=== PATIENT | female | born 1980 | race Caucasian/White ===

== ENCOUNTER 2017-12-16 12:29 | Emergency (ER) | payer BC ==
--- NOTE | 2017-12-16 13:28 | ED Physician Documentation ---
PD HPI BACK PAIN - Stated complaint Stated Complaint: LOW BACK PX.NAUSEA - Chief complaint Chief Complaint: Back Pain - History obtained from History obtained from: Patient - History of Present Illness Timing - onset: Yesterday Timing - details: Abrupt onset, Still present Location: Mid (in flank/kidney area and lateral/anterior to that as well.), Left Quality: Pain, Aching. No: Sharp, Tearing Associated symptoms: No: Fever, Weakness, Numbness, Hematuria Improves with: No: Rest Worsened by: Movement, Twisting. No: Palpation Contributing factors: No: Lifting, Twisting, Trauma Similar symptoms before: Has not had sx before Recently seen: Not recently seen Review of Systems Constitutional: denies: Fever, Chills, Myalgias Nose: denies: Rhinorrhea / runny nose, Congestion Throat: denies: Sore throat Cardiac: denies: Chest pain / pressure, Palpitations, Pedal edema, Calf pain Respiratory: denies: Dyspnea, Cough, Wheezing GI: reports: Abdominal Pain, Nausea. denies: Vomiting, Constipation, Diarrhea, Hematemesis, Bloody / black stool : denies: Dysuria, Frequency, Discharge Skin: denies: Rash, Lesions Musculoskeletal: reports: Back pain Neurologic: denies: Generalized weakness, Focal weakness, Numbness, Near syncope Endocrine: denies: Weight loss Immunocompromised: denies: Immunocompromised PD PAST MEDICAL HISTORY - Past Medical History Past Medical History: No Cardiovascular: None Endocrine/Autoimmune: None GI: None CUTTING MACHINE TENDER: None - Past Surgical History Past Surgical History: Yes Ortho: Other /CUTTING MACHINE TENDER: Dilation and currettage - Present Medications Home Medications: Ambulatory Orders Medication Instructions Recorded Confirmed Acyclovir BID 12/16/17 HYDROcod/ACETAM 5/325 [Largo 5/325] 1 tab PO Q6H PRN #15 tablet 12/16/17 Methocarbamol [Robaxin] 500 mg PO Q6H PRN #25 tablet 12/16/17 Naproxen 375 mg PO BID #20 tablet 12/16/17 - Allergies Allergies/Adverse Reactions: Allergies Allergy/AdvReac Type Severity Reaction Status Date / Time No Known Drug Allergies Allergy Verified 12/16/17 12:58 - Social History Does the pt smoke?: No Smoking Status: Never smoker Does the pt drink ETOH?: Yes Does the pt have substance abuse?: No - Family History Family history: denies: Aortic aneursym, Aortic dissection - Immunizations Immunizations are current?: Yes PD ED PE NORMAL - Vitals Vital signs reviewed: Yes - General General: Alert and oriented X 3, Well developed/nourished, Other (appears in pain, but is alert and conversant. ) - HEENT HEENT: Pharynx benign - Neck Neck: Supple, no meningeal sign, No adenopathy - Cardiac Cardiac: RRR, No murmur - Respiratory Respiratory: Clear bilaterally - Abdomen Abdomen: Normal bowel sounds, Soft, Non distended, No organomegaly, Other ( murphy left lateral abdomen without guarding. Left CVA tender as well. No rash nor sores. ) - Female Female : Deferred - Rectal Rectal: Deferred - Back Back: No CVA TTP - Derm Derm: Normal color, Warm and dry - Extremities Extremities: No deformity, No tenderness to palpate - Neuro Neuro: Alert and oriented X 3, No motor deficit, Normal speech Results - Vitals Vitals: Oxygen O2 Source Room air - Labs Labs: Laboratory Tests 12/16/17 12/16/17 12/16/17 13:00 13:00 14:49 WBC 9.1 RBC 4.05 L Hgb 13.2 Hct 38.8 MCV 95.8 MCH 32.5 H MCHC 34.0 RDW 13.7 Plt Count 234 MPV 8.5 Neut # 5.5 Lymph # 2.6 Mckenzie # 0.8 Eos # 0.1 Baso # 0.1 Absolute Nucleated RBC 0.00 Nucleated RBC % 0.0 Sodium Potassium Chloride Carbon Dioxide Anion Gap BUN Creatinine Estimated GFR (MDRD) Glucose Calcium Total Bilirubin AST ALT Alkaline Phosphatase Total Protein Albumin Globulin Albumin/Globulin Ratio Lipase Urine Color DARK YELLOW Urine Clarity CLEAR Urine pH 5.5 Ur Specific [place] 1.025 1.025 Urine Protein NEGATIVE Urine Glucose (UA) NEGATIVE Urine Ketones TRACE Urine Occult Blood SMALL H Urine Nitrite NEGATIVE Urine Bilirubin NEGATIVE Urine Urobilinogen 0.2 (NORMAL) Ur Leukocyte Esterase NEGATIVE Urine RBC 0-5 Urine WBC 0-3 Ur Squamous Epith Cells RARE Squamous Urine Bacteria Rare Ur Microscopic Review INDICATED Urine Culture Comments NOT INDICATED Urine HCG, Qual NEGATIVE 12/16/17 14:49 WBC RBC Hgb Hct MCV MCH MCHC RDW Plt Count MPV Neut # Lymph # Mckenzie # Eos # Baso # Absolute Nucleated RBC Nucleated RBC % Sodium 139 Potassium 4.1 Chloride 103 Carbon Dioxide 30 Anion Gap 6.0 BUN 13 Creatinine 0.8 Estimated GFR (MDRD) 80 L Glucose 101 H Calcium 8.7 Total Bilirubin 1.4 H AST 27 ALT 22 Alkaline Phosphatase 71 Total Protein 6.5 L Albumin 3.9 Globulin 2.6 Albumin/Globulin Ratio 1.5 Lipase 29 Urine Color Urine Clarity Urine pH Ur Specific [place] Urine Protein Urine Glucose (UA) Urine Ketones Urine Occult Blood Urine Nitrite Urine Bilirubin Urine Urobilinogen Ur Leukocyte Esterase Urine RBC Urine WBC Ur Squamous Epith Cells Urine Bacteria Ur Microscopic Review Urine Culture Comments Urine HCG, Qual - Rads (name of study) abd CT Radiology: Prelim report reviewed (no acute process. Normal appendix. Normal kidneys. ), EMP read contemporaneously PD MEDICAL DECISION MAKING - ED course Complexity details: reviewed results (no obvious cause for the pain and nausea. ), considered differential (consider kidney stone, Pyelo, diverticulitis, ischemic bowel, viral illness. not in likely position for ovarian cause. wrong side for appendix and gallbladder. No rash at this time yet. ), d/w patient Departure - Departure Disposition: 01 Home, Self Care Clinical Impression: Acute left flank pain Condition: Stable Record reviewed to determine appropriate education?: Yes Instructions: ED Flank Pain Uncertain Cause Prescriptions: HYDROcod/ACETAM 5/325 [[place]argo 5/325] 1 tab PO Q6H PRN #15 tablet PRN Reason: Pain Methocarbamol [Robaxin] 500 mg PO Q6H PRN #25 tablet PRN Reason: Spasms Naproxen 375 mg PO BID #20 tablet Comments: Your tests here today have been normal so there is no obvious severe /serious cause for the pain. It may be musculoskeletal given some worsening with movement and deep breathing. See how you do with some anti-inflammatories such as naproxen twice daily for 7-10 days. Add Robaxin muscle relaxant for stiffness and spasm and Tylenol or hydrocodone if needed for pain. Recheck if not improved over the next several days. Return if other symptoms develop. Discharge Date/Time: 12/16/17 16:19
[2017-12-16 13:44] LABS: GLUCOSE, URINE (UA) NEGATIVE (NEGATIVE); KETONES,URINE (UA) TRACE mg/dL (NEGATIVE); LEUKOCYTE ESTERASE, URINE NEGATIVE (NEGATIVE); NITRITE,URINE NEGATIVE (NEGATIVE); OCCULT BLOOD,URINE SMALL (NEGATIVE); PH,URINE 5.5 PH (5.0-7.5); PROTEIN,URINE NEGATIVE (NEGATIVE); UROBILINOGEN,URINE 0.2 (NORMAL) E.U./dL (NORMAL)
[2017-12-16 13:47] LABS: BILIRUBIN,URINE NEGATIVE (NEGATIVE); CLARITY,URINE CLEAR (CLEAR); ICTOTEST,URINE NEGATIVE
[2017-12-16] MEDS ORDERED: METHOCARBAMOL 500 MG TABLET PO STA (13:49)
[2017-12-16] MEDS ORDERED: ACETAMINOPHEN 325 MG TABLET PO STA (13:49)
[2017-12-16] MEDS ORDERED: KETOROLAC 60 MG/2 ML VIAL IM STA (13:49)
[2017-12-16 14:12] LABS: RBC,URINE 0-5 /HPF (0-5); SQUAMOUS EPITHELIAL CELL,UR RARE Squamous (<= Few)
[2017-12-16 14:13] LABS: BACTERIA,URINE Rare /HPF (None Seen)
[2017-12-16 14:50] LABS: HCG UR QUAL NEGATIVE
[2017-12-16 15:00] LABS: BASOPHILS # (AUTO) 0.1 10^3/uL (0.0-0.1); BASOPHILS % (AUTO) 0.7 %; EOSINOPHILS # (AUTO) 0.1 10^3/uL (0.0-0.7); EOSINOPHILS % (AUTO) 1.2 %; HGB - HEMOGLOBIN 13.2 g/dL (12.0-16.0); LYMPHOCYTES # (AUTO) 2.6 10^3/uL (1.5-3.5); LYMPHOCYTES % (AUTO) 28.7 %; MEAN CORPUSCULAR HEMOGLOBIN 32.5 pg (27.0-31.0); MEAN CORPUSCULAR VOLUME 95.8 fL (81.0-99.0); MEAN PLATELET VOLUME 8.5 fL (7.9-10.8); MONOCYTES # (AUTO) 0.8 10^3/uL (0.0-1.0); MONOCYTES % (AUTO) 8.4 %; NEUTROPHILS # (AUTO) 5.5 10^3/uL (1.5-6.6); PLT - PLATELET COUNT 234 10^3/uL (130-450); RED BLOOD COUNT 4.05 10^6/uL (4.20-5.40); RED CELL DISTRIBUTION WIDTH 13.7 % (12.0-15.0); WHITE BLOOD COUNT 9.1 x10^3/uL (4.8-10.8)
[2017-12-16 15:11] LABS: ALBUMIN 3.9 g/dL (3.2-5.5); ALBUMIN/GLOBULIN RATIO 1.5 (1.0-2.2); BILIRUBIN,TOTAL 1.4 mg/dL (0.2-1.0); CALCIUM 8.7 mg/dL (8.5-10.3); CREATININE 0.8 mg/dL (0.4-1.0); TOTAL PROTEIN 6.5 g/dL (6.7-8.2)
[2017-12-16 15:36] VITALS: BP 106/64
--- NOTE | 2017-12-16 15:44 | CT Preliminary Report ---
Exam: CT ABDOMEN/PELVIS W/O IMPRESSION: No urinary tract stones or obstruction. [facility] SITE ID: [id number]
--- NOTE | 2017-12-16 15:44 | CT Report ---
EXAM: CT ABDOMEN AND PELVIS (CT KUB) EXAM DATE: 12/16/2017 03:14 PM. CLINICAL HISTORY: Left flank pain onset abrupt yesterday. COMPARISONS: None. TECHNIQUE: Routine axial helical CT imaging was performed through the abdomen and pelvis without IV c ontrast. Reconstructions: Coronal and sagittal. In accordance with CT protocol optimization, one or more of the following dose reduction techniques w ere utilized for this exam: automated exposure control, adjustment of mA and/or KV based on patient s ize, or use of iterative reconstructive technique. FINDINGS: Lung Bases: Unremarkable. Right Kidney/Ureter: No stones, hydronephrosis, or hydroureter. No perinephric fat stranding. Left Kidney/Ureter: No stones, hydronephrosis, or hydroureter. No perinephric fat stranding. Other Solid Organs: Noncontrast images of the solid organs are grossly unremarkable. Gallbladder/Bile Ducts: Unremarkable. Peritoneal Cavity: No free fluid, free air or sasha adenopathy. Bowel is grossly unremarkable. Modera te amount of stool. Normal appendix. Pelvic Organs: No bladder stones or wall thickening. Noncontrast images of the visualized pelvic orga ns are unremarkable. Vasculature: Unremarkable. Other: None. IMPRESSION: No urinary tract stones or obstruction. [facility] Referring Provider Line: [phone] SITE ID: [id number]
== END 2017-12-16 16:19 | disposition home or self-care (01) ==
LOC: ED 12:29
DX: R10.9 Unspecified abdominal pain (principal)
CPT/HCPCS: 36415; 74176; 80053; 81001; 81025; 83690; 85025; 99283; 99284; A9270; 81003; 87086

== ENCOUNTER 2019-01-24 21:54 | Emergency (ER) | payer BC ==
--- NOTE | 2019-01-24 22:26 | ED Physician Documentation ---
History of Present Illness - Stated complaint Stated Complaint: HIGH BP/1 WK POST - Chief complaint Chief Complaint: General - History obtained from History obtained from: Patient, Family - History of Present Illness Timing: Today - Additonal information Additional information: 38-year-old female who is 1 week from a delivery has devel oped some hypertension and leg swelling following the delivery and yesterday at her visit she was placed on some Lasix with an elevated blood pressure with concerns for preeclampsia. The patient has felt well she has decreased her use of ibuprofen and Tylenol and she has stopped her narcotic about 3 days ago. She has retained some fluid in her legs and she has been placed on to some furosemide 20 mg daily which she took yesterday and today. Review of Systems Constitutional: denies: Fever, Chills Eyes: denies: Decreased vision Ears: denies: Ear pain Nose: denies: Rhinorrhea / runny nose, Congestion Throat: denies: Sore throat Cardiac: denies: Chest pain / pressure, Palpitations Respiratory: reports: Dyspnea (yesterday). denies: Cough GI: reports: Abdominal Swelling. denies: Abdominal Pain, Nausea, Vomiting : denies: Dysuria, Frequency Skin: denies: Rash Musculoskeletal: reports: Extremity swelling. denies: Neck pain, Back pain, Extremity pain Neurologic: denies: Generalized weakness, Focal weakness, Numbness PD PAST MEDICAL HISTORY - Past Medical History Cardiovascular: None Endocrine/Autoimmune: None GI: None LEAD LEVEL DESIGNER: None - Past Surgical History Past Surgical History: Yes Ortho: Other /LEAD LEVEL DESIGNER: section, Dilation and currettage - Present Medications Home Medications: Ambulatory Orders Medication Instructions Recorded Confirmed Acyclovir BID 12/16/17 Furosemide 20 mg PO 01/24/19 NIFEdipine [Nifedipine] 10 mg PO 01/24/19 - Allergies Allergies/Adverse Reactions: Allergies Allergy/AdvReac Type Severity Reaction Status Date / Time No Known Drug Allergies Allergy Verified 01/24/19 22:01 - Social History Does the pt smoke?: No Smoking Status: Never smoker Does the pt drink ETOH?: Yes Does the pt have substance abuse?: No - Immunizations Immunizations are current?: Yes PD ED PE NORMAL - Vitals Vital signs reviewed: Yes (normal ) - General General: Alert and oriented X 3, No acute distress, Well developed/nourished - HEENT HEENT: Atraumatic, PERRL, EOMI - Neck Neck: Supple, no meningeal sign, No bony TTP, No JVD - Cardiac Cardiac: RRR, No murmur - Respiratory Respiratory: No respiratory distress, Clear bilaterally - Abdomen Abdomen: Soft, Non tender - Back Back: No CVA TTP, No spinal TTP - Derm Derm: Normal color, Warm and dry, No rash - Extremities Extremities: No deformity, No calf tenderness / cord, Other (pitting edema to the mid calf ) - Neuro Neuro: Alert and oriented X 3, fiscal economist 2-12 intact, No motor deficit, No sensory deficit, Normal speech Eye Opening: Spontaneous Motor: Obeys Commands Verbal: Oriented GCS Score: 15 - Psych Psych: Normal mood, Normal affect Results - Vitals Vitals: Vital Signs - 24 hr 01/24/19 01/24/19 01/24/19 21:58 22:08 22:11 Temperature 36.4 C L Heart Rate 76 72 71 Respiratory 16 Rate Blood Pressure 121/78 146/81 H 135/82 H O2 Saturation 98 Oxygen O2 Source Room air - Labs Labs: Laboratory Tests 01/24/19 01/24/19 01/24/19 22:30 22:30 22:30 WBC 9.6 RBC 3.25 L Hgb 10.8 L Hct 31.8 L MCV 97.8 MCH 33.2 H MCHC 34.0 RDW 12.6 Plt Count 334 MPV 9.4 Neut # (Auto) 5.4 Lymph # (Auto) 3.2 Fleming # (Auto) 0.8 Eos # (Auto) 0.2 Baso # (Auto) 0.1 Absolute Nucleated RBC 0.00 Nucleated RBC % 0.0 Sodium 136 Potassium 3.5 Chloride 104 Carbon Dioxide 24 Anion Gap 8.0 BUN 15 Creatinine 0.8 Estimated GFR (MDRD) 80 L Glucose 103 H Calcium 8.5 Total Bilirubin 0.8 AST 29 ALT 33 Alkaline Phosphatase 90 Troponin I < 0.04 B-Natriuretic Peptide Total Protein 6.1 L Albumin 3.0 L Globulin 3.1 Albumin/Globulin Ratio 1.0 Lipase 46 01/24/19 22:30 WBC RBC Hgb Hct MCV MCH MCHC RDW Plt Count MPV Neut # (Auto) Lymph # (Auto) Fleming # (Auto) Eos # (Auto) Baso # (Auto) Absolute Nucleated RBC Nucleated RBC % Sodium Potassium Chloride Carbon Dioxide Anion Gap BUN Creatinine Estimated GFR (MDRD) Glucose Calcium Total Bilirubin AST ALT Alkaline Phosphatase Troponin I B-Natriuretic Peptide 100 Total Protein Albumin Globulin Albumin/Globulin Ratio Lipase Procedures - IVC sono (time) 2217 Bedside IVC sono: IVC measures (cm) (2.13), IVC collapsed c insp (cm) (1.26), Collapsibility index (0.40), Euvolemia (The IVC is plump but collapses with respiration enough to be consistent with euvolemia and enough to rule out failure.) PD MEDICAL DECISION MAKING - ED course Complexity details: reviewed old records, reviewed results, re-evaluated patient, considered differential, d/w patient, d/w family ED course: 38-year-old female 1 week from delivery has developed some hypertension and extremity swelling and she has been placed on furosemide and nifedipine and she is concerned about elevations in her blood pressure. She had a spike this evening and is come to the emergency department. Today here on evaluation in the emergency department she does have some swelling to the mid calf her blood pressure is normal and near normal and her inferior vena cava indicates euvolemia and no evidence of failure. She does have a plump IVC consistent with the additional fluid she is managing. Her LFTs and any function are tested again today and are normal. The patient is reassured and warned about potential for overshooting with the lasix. She looks like she may need a few more days of diuretic. Her blood pressure has normalized here in the ED. Departure - Departure Disposition: 01 Home, Self Care Clinical Impression: Fluid retention Condition: Stable Instructions: BP Check Steps Comments: Today it appears that your hypertension is transient and likely related to fluid retention. Your kidney and liver functions this evening are normal and the expectation is that your blood pressure will return to normal over the following week. Take medications as prescribed and follow-up with your primary care doctor. Be careful not to overshoot with the use of the furosemide but it does appear you still have fluid to release and this should take several more days.
[2019-01-24 22:35] LABS: BASOPHILS # (AUTO) 0.1 10^3/uL (0.0-0.1); BASOPHILS % (AUTO) 0.6 %; EOSINOPHILS # (AUTO) 0.2 10^3/uL (0.0-0.7); EOSINOPHILS % (AUTO) 2.1 %; HGB - HEMOGLOBIN 10.8 g/dL (12.0-16.0); LYMPHOCYTES # (AUTO) 3.2 10^3/uL (1.5-3.5); MEAN CORPUSCULAR HEMOGLOBIN 33.2 pg (27.0-31.0); MEAN CORPUSCULAR VOLUME 97.8 fL (81.0-99.0); MEAN PLATELET VOLUME 9.4 fL (7.9-10.8); MONOCYTES # (AUTO) 0.8 10^3/uL (0.0-1.0); NEUTROPHILS # (AUTO) 5.4 10^3/uL (1.5-6.6); NEUTROPHILS % (AUTO) 55.7 %; PLT - PLATELET COUNT 334 10^3/uL (130-450); RED BLOOD COUNT 3.25 10^6/uL (4.20-5.40); RED CELL DISTRIBUTION WIDTH 12.6 % (12.0-15.0); WHITE BLOOD COUNT 9.6 x10^3/uL (4.8-10.8)
[2019-01-24 22:51] LABS: BILIRUBIN,TOTAL 0.8 mg/dL (0.2-1.0); CALCIUM 8.5 mg/dL (8.5-10.3); CREATININE 0.8 mg/dL (0.4-1.0); TOTAL PROTEIN 6.1 g/dL (6.7-8.2)
[2019-01-24 23:47] VITALS: BP 147/84
== END 2019-01-24 23:28 | disposition home or self-care (01) ==
LOC: ED 21:54
DX: O12.05 Gestational edema, complicating the puerperium (principal); O13.5 Gestational [pregnancy-induced] hypertension without significant proteinuria, complicating the puerperium
CPT/HCPCS: 36415; 80053; 83690; 83880; 84484; 85025; 99283

== ENCOUNTER 2021-05-10 16:43 | Outpatient (CLI) | payer BC | END 2021-05-10 16:44 | disposition home or self-care (01) | LOC: LAB 16:43 | PROVIDERS: ATTEND Nurse Practitioner Family | DX: Z01.84 Encounter for antibody response examination (principal); Z23 Encounter for immunization | CPT/HCPCS: 81599; 86382 ==

== ENCOUNTER 2023-03-26 12:14 | Outpatient (CLI) | payer BC ==
--- NOTE | 2023-03-26 17:25 | XRAY Report ---
PROCEDURE: Foot 3 View LT INDICATIONS: SPRAIN OF LEFT FOOT TECHNIQUE: 3 views of the foot were acquired. COMPARISON: None. FINDINGS: Bones: No fractures or dislocations. No suspicious bony lesions. Soft tissues: No suspicious soft tissue calcifications or masses. IMPRESSION: No acute bony abnormality. Reviewed by: Roman Hahn on 03/26/2023 5:24 PM PDT Approved by: Roman Hahn on 03/26/2023 5:24 PM PDT Station ID: [id number]
== END 2023-03-26 23:59 | disposition home or self-care (01) ==
LOC: DI.S 12:14
PROVIDERS: ATTEND Physician Assistant
DX: S93.692A Other sprain of left foot, initial encounter (principal); M67.472 Ganglion, left ankle and foot